=== PATIENT | male | born 1945 | race Caucasian/White ===

== ENCOUNTER 2023-03-17 18:50 | Emergency (ER) | payer MEDICARE ==
[~2023-03-17] VITALS: Ht 162.6 cm; Wt 68.0 kg
[2023-03-17 19:01] VITALS: BP 109/47; PULSE 71; RESP 20; O2SAT 96
[2023-03-17 19:48] LABS: BASOPHILS % 0.5 % (0.0-2.0); HEMATOCRIT. 33.7 % (42.0-52.0); HEMOGLOBIN. 10.9 g/dL (14.0-18.0); LYMPHOCYTES % 12.7 % (20.0-50.0); MEAN CORPUSCULAR VOLUME 86.5 fL (80.0-94.0); MEAN PLATELET VOLUME 6.9 fl (7.4-10.4); MONOCYTES % 12.3 % (2.0-8.0); NEUTROPHILS % 74.5 % (40.0-76.0); PLATELET 212 x1000/uL (130-400); RED CELL DISTRIBUTION WIDTH 13.9 % (11.6-14.6)
[2023-03-17 19:58] LABS: INR 1.1
[2023-03-17 20:15] LABS: CHLORIDE 104 mEq/L (98-107)
[2023-03-17] MEDS ORDERED: ACETAMINOPHEN 325MG TABLET PO ONE (21:15)
[2023-03-17 21:24] VITALS: TEMP 98.6
== END 2023-03-17 21:30 | disposition left against medical advice (07) ==
LOC: ER 18:50
DX: J02.9 Acute pharyngitis, unspecified (principal); E11.9 Type 2 diabetes mellitus without complications; Z98.890 Other specified postprocedural states
CPT/HCPCS: 36415; 71045; 80053; 83880; 84484; 85025; 99284